=== PATIENT | male | born 1965 | race Caucasian/White ===

== ENCOUNTER 2018-04-20 14:42 | Emergency (ER) | payer SELFPAY ==
[~2018-04-20] VITALS: Ht 185.4 cm; Wt 95.3 kg
[2018-04-20 15:06] VITALS: BP 152/82
--- NOTE | 2018-04-20 16:00 | Emergency Room Report ---
History of Present Illness General Chief Complaint: General Complaint Source: Patient Present Illness HPI 53-year-old male presents to the emergency department complaining of bilateral feet swelling 2 days. Patient denies previous episodes of symptoms in the past. Patient denies pain, denies trauma or fall. Patient reports no past medical history. He reports that he drives long distances frequently. Patient denies excessive salt intake. Denies calf pain. denies paresthesias. Denies hx of HTN. He Denies SOB, COUGH or CP Allergies: Coded Allergies: ASPIRIN (Verified Allergy, Unknown, 04/20/18) Patient History Past Medical History: see triage record Past Surgical History: none Pertinent Family History: none Reviewed Nursing Documentation: PMH: Agreed; PSxH: Agreed Nursing Documentation-PMH Past Medical History: No Stated History Review of Systems All Other Systems: negative except mentioned in HPI Physical Exam Vital Signs Date Time Temp Pulse Resp B/P (MAP) Pulse Ox O2 Delivery O2 Flow Rate FiO2 04/20/18 14:48 98.0 78 18 152/82 95 Room Air 98.1 Sp02 EP Interpretation: reviewed, normal General Appearance: no apparent distress, alert, GCS 15, non-toxic Head: normocephalic, atraumatic Eyes: bilateral eye normal inspection, bilateral eye PERRL ENT: hearing grossly normal, normal voice Neck: full range of motion Respiratory: lungs clear, normal breath sounds, speaking full sentences Cardiovascular #1: regular rate, rhythm, normal capillary refill, edema - bilateral Gastrointestinal: non tender, soft Genitourinary: normal inspection, no CVA tenderness Musculoskeletal: back normal, gait/station normal, normal range of motion, non- tender, no calf tenderness Neurologic: alert, oriented x3, responsive, motor strength/tone normal, sensory intact, normal gait, speech normal, grossly normal Psychiatric: judgement/insight normal Skin: normal color, no rash, warm/dry, well hydrated Medical Decision Making PA Attestation Dr. Guadarrama is my supervising Physician whom patient management has been discussed with. Diagnostic Impression: Primary Impression: Peripheral edema ER Course 53-year-old male presents to the emergency department complaining of bilateral feet swelling 2 days. Patient denies previous episodes of symptoms in the past. Patient denies pain, denies trauma or fall. Patient reports no past medical history. He reports that he drives long distances frequently. Patient denies excessive salt intake. Denies calf pain. denies paresthesias. Denies hx of HTN. He Denies SOB, COUGH or CP Ddx considered but are not limited to DVT, Cellulitis, CHF, lymphedema, circulatory compromise, peripheral edema, musculo-skeletal injury Vital signs: WNL, pt afebrile H&PE are most consistent with benign pedal edema ... will do lab work to check renal function for treatment with diuretic, as well as review electrolytes. - pt. does not have Cardic RF -Good circulation on PE. - Pt. has wells criteria of Zero. ORDERS: -CMP: Unremarkable ED INTERVENTIONS: -Lasix PO -d/w pt. results of laboratory testing. I do not suspect an emergent condition at this time. with current presentation pt. is stable for close outpatient follow up. D/w pt. that i will rx compression stockings, conservative treatment and to follow up with her PCP, and to return to ED with new or worsening of symptoms. DISCHARGE: At this time pt. is stable for d/c to home. Will provide printed patient care instructions, and any necessary prescriptions. Care plan and follow up instructions have been discussed with the patient prior to discharge. Labs Test 04/20/18 15:36 Sodium Level 140 MMOL/L (136-145) Potassium Level 3.6 MMOL/L (3.5-5.1) Chloride Level 106 MMOL/L (98-107) Carbon Dioxide Level 24 MMOL/L (21-32) Anion Gap 10 mmol/L (5-15) Blood Urea Nitrogen 13 mg/dL (7-18) Creatinine 1.1 MG/DL (0.55-1.30) Estimat Glomerular Filtration Rate > 60 mL/min (>60) Glucose Level 122 MG/DL (74-106) Calcium Level 9.1 MG/DL (8.5-10.1) Total Bilirubin 0.4 MG/DL (0.2-1.0) Aspartate Amino Transf (AST/SGOT) 26 U/L (15-37) Alanine Aminotransferase (ALT/SGPT) 63 U/L (12-78) Alkaline Phosphatase 64 U/L (46-116) Total Protein 7.1 G/DL (6.4-8.2) Albumin 3.7 G/DL (3.4-5.0) Globulin 3.4 g/dL Albumin/Globulin Ratio 1.1 (1.0-2.7) Last Vital Signs Date Time Temp Pulse Resp B/P (MAP) Pulse Ox O2 Delivery O2 Flow Rate FiO2 04/20/18 15:06 98.1 78 18 152/82 95 Room Air 98.1 Disposition: HOME, SELF-CARE Condition: Stable Scripts Furosemide* (LASIX*) 20 Mg Tablet 20 MG ORAL DAILY, #6 TAB Prov: Lynda Vinson 04/20/18 Referrals: NOT CHOSEN IPA/MD,REFERRING (PCP) Patient Instructions: Peripheral Edema Additional Instructions: Take medications as directed. Careful standing up too quickly while taking lasix/ Diuretics Follow up with a Primary Care Provider in 3-5 days, even if your symptoms have resolved. --Please review list of primary care clinics, if you do not already have a primary care provider Return sooner to ED if new symptoms occur, or current symptoms become worse. - Please note that this Emergency Department Report was dictated using [employer] neurologist technology software, occasionally this can lead to erroneous entry secondary to interpretation by the dictation equipment. Lynda Vinson Apr 20, 2018 16:00
[2018-04-20 16:11] LABS: ANION GAP 10 mmol/L (5-15); BLOOD UREA NITROGEN 13 mg/dL (7-18); CALCIUM 9.1 MG/DL (8.5-10.1); CARBON DIOXIDE 24 MMOL/L (21-32); CHLORIDE 106 MMOL/L (98-107); CREATININE 1.1 MG/DL (0.55-1.30); POTASSIUM 3.6 MMOL/L (3.5-5.1); SODIUM 140 MMOL/L (136-145)
[2018-04-20 16:16] LABS: ALANINE AMINOTRANSFERASE 63 U/L (12-78); ALBUMIN 3.7 G/DL (3.4-5.0); ALBUMIN/GLOBULIN RATIO 1.1 (1.0-2.7); ALKALINE PHOSPHATASE 64 U/L (46-116); ASPARTATE AMINO TRANSFERASE 26 U/L (15-37); BILIRUBIN,TOTAL 0.4 MG/DL (0.2-1.0)
[2018-04-20] MEDS ORDERED: FUROSEMIDE20 M1 ORAL (16:20)
[2018-04-20 16:45] VITALS: BP 152/82
== END 2018-04-20 16:45 | disposition home or self-care (01) ==
LOC: EMR 15:51
DX: R60.0 Localized edema (principal); Z88.6 Allergy status to analgesic agent
CPT/HCPCS: 36415; 80053; 99283